=== PATIENT | female | born 1970 | race Caucasian/White ===

== ENCOUNTER 2016-05-13 13:38 | Emergency (ER) | payer OTHER ==
[~2016-05-13] VITALS: Wt 57.0 kg
[~2016-05-13 13:38] MED LIST: NAPR-688 PO
[2016-05-13] MEDS ORDERED: ONDANSETRON 4 MG INJ IV STA (14:37)
[2016-05-13] MEDS ORDERED: KETOROLAC 30 MG INJ IV STA (14:37)
[2016-05-13 15:00] LABS: BASOPHILS % 0.4 % (0.0-2.0); EOSINOPHILS % 0.8 % (0.0-7.0); LYMPHOCYTES % 39.2 % (15.0-51.0); MEAN CORPUSCULAR HEMOGLOBIN 28.9 pg (29.0-33.0); MEAN CORPUSCULAR HGB CONC 33.3 g/dl (32.0-37.0); MEAN CORPUSCULAR VOLUME 86.9 fl (82.0-101.0); MEAN PLATELET VOLUME 8.9 fl (7.4-10.4); MONOCYTE # 0.4 10^3/ul (0.3-0.9); MONOCYTES % 8.5 % (0.0-11.0); NEUTROPHIL # 2.7 10^3/ul (1.6-7.5); NEUTROPHILS % 51.1 % (39.0-77.0); PLATELET COUNT 237 10^3/UL (140-440); RED BLOOD COUNT 4.48 10^6/ul (4.20-5.40); RED CELL DISTRIBUTION WIDTH 13.6 % (11.5-14.5); UNCORRECTED WBC 5.2 10^3/ul (4.8-10.8); WHITE BLOOD COUNT 5.2 10^3/ul (4.8-10.8)
[2016-05-13 15:07] LABS: ADD UMIC YES; URINE BILIRUBIN (Dip) NEGATIVE (NEGATIVE); URINE BLOOD (Dip) TRACE (NEGATIVE); URINE COLOR LT. YELLOW (YELLOW); URINE GLUCOSE (Dip) NEGATIVE (NEGATIVE); URINE KETONES (Dip) NEGATIVE (NEGATIVE); URINE LEUKOCYTE ESTERASE (Dip) 1+ (NEGATIVE); URINE NITRITE (Dip) NEGATIVE (NEGATIVE); URINE TOTAL PROTEIN (Dip) NEGATIVE (NEGATIVE); URINE UROBILINOGEN (Dip) 0.2 E.U./dL (0.1-1.0)
[2016-05-13 15:08] LABS: ALBUMIN 4.5 g/dl (3.3-4.9); POTASSIUM 3.9 mmol/L (3.5-5.1)
[2016-05-13 15:10] LABS: BILIRUBIN,INDIRECT 0.2 mg/dl (0-1.1); BILIRUBIN,TOTAL 0.2 mg/dl (0.2-1.3); CREATININE 0.54 mg/dl (0.44-1.00)
[2016-05-13 15:11] LABS: ALBUMIN/GLOBULIN RATIO 1.12; CALCIUM 9.4 mg/dl (8.4-10.2); TOTAL PROTEIN 8.5 g/dl (6.1-8.1)
[2016-05-13 15:17] LABS: BACTERIA,URINE FEW; SQUAMOUS EPITHELIAL CELL,UR MODERATE
[2016-05-13 15:43] LABS: CONDITION 1
[2016-05-13] MEDS ORDERED: NAPR-260 PO (16:13)
[2016-05-13] MEDS ORDERED: CEPH-443 PO (16:13)
--- NOTE | 2016-05-13 16:20 | ERD ---
ER Documentation Chief Complaint Date/Time DATE: 05/13/16 TIME: 16:15 Chief Complaint left lower abdominal pain for 1 week. nausea no vomiting HPI 46-year-old female with no significant past medical history presents to the ED complaining of chronic left flank pain that started intermittently 1 week ago. States that the left back pain that radiates to the front of her abdomen. Describes the pain as sharp and rates it a 7 out of 10. Denies any fever, chills, chest pain, shortness of breath, cough, rhinorrhea. Reports that she has had a previous total hysterectomy. ROS All systems reviewed and are negative except as per history of present illness. Medications Home Meds Active Scripts Naproxen* (Naprosyn*) 500 Mg Tablet, 500 MG PO BID Y for PAIN AND/OR INFLAMMATION, #30 TAB Prov:JUAN J DIAZ PA-C 05/13/16 Cephalexin* (Keflex*) 500 Mg Capsule, 500 MG PO QID for 7 Days, CAP Prov:JUAN J DIAZ PA-C 05/13/16 Naproxen* (Naproxen*) 500 Mg Tablet, 500 MG PO BID, #20 TAB Prov:CARL WILLIAM DO 03/15/16 Allergies Allergies: Coded Allergies: No Known Drug Allergies (Verified Allergy, Unknown, 05/13/16) PMhx/Soc History of Surgery: Yes (Hysterectomy) Anesthesia Reaction: No Hx Neurological Disorder: No Hx Respiratory Disorders: No Hx Cardiac Disorders: No Hx Psychiatric Problems: No Hx Miscellaneous Medical Probl: Yes (urinary tract infection) Hx Alcohol Use: No Hx Substance Use: No Hx Tobacco Use: No Smoking Status: Never smoker Physical Exam Vitals Vital Signs Date Time Temp Pulse Resp B/P Pulse Ox O2 Delivery O2 Flow Rate FiO2 05/13/16 13:41 98.0 76 20 110/68 98 Physical Exam Const: [id number], well-nourished. In no acute distress. Head: Atraumatic, normocephalic Eyes: Normal Conjunctiva without injection. No purulent discharge. ENT: Normal external ear, nose. Moist oropharynx without tonsillar exudates. Non -erythematous pharynx. Uvula midline. No drooling. No trismus. Neck: No cervical midline tenderness. Full range of motion. No meningismus. No cervical lymphadenopathy. No JVD. Resp: Clear to auscultation bilaterally. No wheezing, rhonchi, rales, or crackles. No accessory muscle use. No retractions. Cardio: Regular rate and rhythm. No murmurs, rubs or gallops. Abd: Soft, slight left lower quadrant tenderness, non distended. Normal bowel sounds. No palpable masses. No rebound tenderness. No guarding. Negative McBurney's point. Negative psoas sign. Negative obturator sign. Skin: No petechiae or rashes Back: No midline tenderness. No CVA tenderness. Ext: No cyanosis, or edema. Neur: Awake and alert. Normal gait. Normal coordination. Psych: Normal Mood and Affect Result Diagram: 05/13/16 1453 05/13/16 1453 Results 24 hrs Laboratory Tests Test 05/13/16 14:53 05/13/16 14:55 Alanine Aminotransferase (ALT/SGPT) 89IU/L Albumin 4.5g/dl Albumin/Globulin Ratio 1.12 Alkaline Phosphatase 87IU/L Anion Gap 16 Aspartate Amino Transf (AST/SGOT) 56IU/L Basophils # 0.010^3/ul Basophils % 0.4% Blood Morphology Comment Blood Urea Nitrogen 14mg/dl Calcium Level 9.4mg/dl Carbon Dioxide Level 31mmol/L Chloride Level 103mmol/L Creatinine 0.54mg/dl Direct Bilirubin 0.00mg/dl Eosinophils # 0.010^3/ul Eosinophils % 0.8% Globulin 4.00g/dl Glucose Level 52mg/dl Hematocrit 39.0% Hemoglobin 13.0g/dl Indirect Bilirubin 0.2mg/dl Lipase 117U/L Lymphocytes # 2.010^3/ul Lymphocytes % 39.2% Mean Corpuscular Hemoglobin 28.9pg Mean Corpuscular Hemoglobin Concent 33.3g/dl Mean Corpuscular Volume 86.9fl Mean Platelet Volume 8.9fl Monocytes # 0.410^3/ul Monocytes % 8.5% Neutrophils # 2.710^3/ul Neutrophils % 51.1% Nucleated Red Blood Cells # 0.010^3/ul Nucleated Red Blood Cells % 0.0/100WBC Platelet Count 25525^3/UL Potassium Level 3.9mmol/L Red Blood Count 4.4810^6/ul Red Cell Distribution Width 13.6% Sodium Level 146mmol/L Total Bilirubin 0.2mg/dl Total Protein 8.5g/dl White Blood Count 5.210^3/ul Urine Bacteria FEW Urine Bilirubin NEGATIVE Urine Clarity CLEAR Urine Color LT. YELLOW Urine Glucose NEGATIVE% Urine Hemoglobin TRACE Urine Ketones NEGATIVE Urine Leukocyte Esterase 1+ Urine Microscopic RBC 2-5/HPF Urine Microscopic WBC 2-5/HPF Urine Nitrite NEGATIVE Urine Specific [place] 1.020 Urine Squamous Epithelial Cells MODERATE Urine Total Protein NEGATIVE Urine Urobilinogen 0.2 E.U./dL Urine pH 6.0 Current Medications Medications (Trade) Dose Ordered Sig/Lukas Route PRN Reason Start Time Stop Time Status Last Admin Dose Admin Ondansetron HCl (Zofran Inj) 4 mg ONCE STAT IV 05/13/16 14:37 05/13/16 14:38 05/13/16 14:47 Ketorolac Tromethamine (Toradol) 30 mg ONCE STAT IV 05/13/16 14:37 05/13/16 14:38 05/13/16 14:47 Procedures/MDM 46-year-old female with no significant past medical history presents the ED complaining chronic left flank pain that radiates to the left lower abdomen. Patient is afebrile and nontoxic-appearing. Patient has normal vital signs. Patient was further worked up with CBC, CMP, lipase, UA, urine . Patient's pain and symptoms have improved after treatment with 30 mg IV Ketoralac. CBC: No leukocytosis. No e/o of systemic infection. No e/o anemia. CMP: No e/o severe acidosis, alkalosis, renal failure, diabetic ketoacidosis, liver disease Lipase within normal limits. Urine: 1+ leukocyte esterase with 2-5 white blood cells. No hematuria no nitrite. Urine : Patient had a previous hysterectomy. Patient will be treated for a possible urinary tract infection. Patient's left flank pain as chronic. We discussed obtaining a CT of the abdomen and pelvis without contrast at this time. We both agreed at this time that since patient has had [address] scans, that the risks of radiation outweigh the benefits. There is low suspicion for acute abdomen such as diverticulitis, appendicitis , or other emergent conditions as patient has no leukocytosis noted. A differential diagnosis considered includes but is not limited to gastritis, GERD , peptic ulcer disease, cholecystitis, choledocholithiasis, cholangitis, pancreatitis, appendicitis, bowel obstruction, ileus, volvulus, nephrolithiasis , pyelonephritis, hepatitis, perforated viscus, diverticulitis, abdominal hernia , acute abdomen, mesenteric ischemia or other emergent conditions. 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 Instructed patient to return to the ED sooner for any worsening symptoms. Patient's questions were answered. Patient understood and agreed with discharge plan. Patient discharged stable. Departure Diagnosis: Primary Impression: Flank pain Additional Impression: UTI (urinary tract infection) Urinary tract infection type: site unspecified Hematuria presence: without hematuria Qualified Code: N39.0 - Urinary tract infection without hematuria, site unspecified Condition: Stable Patient Instructions: Understanding Urinary Tract Infections (UTIs), Flank Pain , Uncertain Cause Referrals: MARLEE HEREDIA (PCP) ON LICENSE OF [facility] YOU HAVE RECEIVED A MEDICAL SCREENING EXAM AND THE RESULTS INDICATE THAT YOU DO NOT HAVE A CONDITION THAT REQUIRES URGENT TREATMENT IN THE EMERGENCY DEPARTMENT. FURTHER EVALUATION AND TREATMENT OF YOUR CONDITION CAN WAIT UNTIL YOU ARE SEEN IN YOUR DOCTORS OFFICE WITHIN THE NEXT 1-2 DAYS. IT IS YOUR RESPONSIBILITY TO MAKE AN APPOINTMENT FOR FOLOW-UP CARE. IF YOU HAVE A PRIMARY DOCTOR --you should call your primary doctor and schedule an appointment IF YOU DO NOT HAVE A PRIMARY DOCTOR YOU CAN CALL OUR PHYSICIAN REFERRAL HOTLINE AT IF YOU CAN NOT AFFORD TO SEE A PHYSICIAN YOU CAN CHOSE FROM THE FOLLOWING ON LICENSE OF [facility] [address]. [facility] [address] [facility] [address] [facility] [facility] [address] [facility]. [facility] [address] [facility]. [facility]. [address] [facility] YOU HAVE RECEIVED A MEDICAL SCREENING EXAM AND THE RESULTS INDICATE THAT YOU DO NOT HAVE A CONDITION THAT REQUIRES URGENT TREATMENT IN THE EMERGENCY DEPARTMENT. FURTHER EVALUATION AND TREATMENT OF YOUR CONDITION CAN WAIT UNTIL YOU ARE SEEN IN YOUR DOCTORS OFFICE WITHIN THE NEXT 1-2 DAYS. IT IS YOUR RESPONSIBILITY TO MAKE AN APPOINTMENT FOR FOLOW-UP CARE. IF YOU HAVE A PRIMARY DOCTOR --you should call your primary doctor and schedule and appointment IF YOU DO NOT HAVE A PRIMARY DOCTOR YOU CAN CALL OUR PHYSICIAN REFERRAL HOTLINE AT . IF YOU CAN NOT AFFORD TO SEE A PHYSICIAN YOU CAN CHOSE FROM THE FOLLOWING [facility] INSTITUTIONS: [facility] [address] [place] [address] [facility] [address] [place] [address] [facility] + [facility] [address] [place] [address] [facility] URGENT [facility]/SPECIALTIES Additional Instructions: FOLLOW UP WITH YOUR PRIMARY CARE PHYSICIAN TOMORROW. Return to this facility if you are not improving as expected. JUAN J DIAZ PA-C May 13, 2016 16:20
== END 2016-05-13 16:24 | disposition home or self-care (01) ==
LOC: FTE 13:38
DX: R10.32 Left lower quadrant pain (principal); N39.0 Urinary tract infection, site not specified; R11.0 Nausea
CPT/HCPCS: 36415; 80053; 81001; 81003; 83690; 85025; 96374; 96375; J1885; J2405; Z7502

== ENCOUNTER 2016-11-10 13:10 | Emergency (ER) | payer OTHER ==
[~2016-11-10] VITALS: Wt 57.3 kg
[~2016-11-10 13:10] MED LIST changes: +CEPH-443 PO; +NAPR-260 PO
[2016-11-10 14:11] LABS: ADD SCAN DIFF NO
[2016-11-10 14:20] LABS: BASOPHILS % 0.3 % (0.0-2.0); EOSINOPHILS # 0.1 10^3/ul (0.0-0.5); EOSINOPHILS % 0.8 % (0.0-7.0); HEMATOCRIT 38.6 % (37.0-47.0); HEMOGLOBIN 12.4 g/dl (12.0-16.0); LYMPHOCYTES # 1.9 10^3/ul (0.8-2.9); LYMPHOCYTES % 32.8 % (15.0-51.0); MEAN CORPUSCULAR HEMOGLOBIN 28.9 pg (29.0-33.0); MEAN CORPUSCULAR HGB CONC 32.1 g/dl (32.0-37.0); MEAN PLATELET VOLUME 10.5 fl (7.4-10.4); MONOCYTE # 0.5 10^3/ul (0.3-0.9); MONOCYTES % 7.9 % (0.0-11.0); NEUTROPHIL # 3.4 10^3/ul (1.6-7.5); NEUTROPHILS % 57.9 % (39.0-77.0); PLATELET COUNT 231 10^3/UL (140-415); RED BLOOD COUNT 4.29 10^6/ul (4.20-5.40); RED CELL DISTRIBUTION WIDTH 13.1 % (11.5-14.5); WHITE BLOOD COUNT 5.9 10^3/ul (4.8-10.8)
[2016-11-10 14:32] LABS: ADD UMIC YES; UR ASCORBIC ACID NEGATIVE (NEGATIVE); UR BILIRUBIN (Dip) NEGATIVE (NEGATIVE); UR BLOOD (Dip) NEGATIVE (NEGATIVE); UR CLARITY CLEAR (CLEAR); UR COLOR STRAW (YELLOW); UR GLUCOSE (Dip) NEGATIVE (NEGATIVE); UR KETONES (Dip) NEGATIVE (NEGATIVE); UR LEUKOCYTE ESTERASE (Dip) TRACE Leu/ul (NEGATIVE); UR NITRITE (Dip) NEGATIVE (NEGATIVE); UR RBC 0 /HPF (0-5); UR SPECIFIC GRAVITY (Dip) 1.006 (1.003-1.030); UR TOTAL PROTEIN (Dip) NEGATIVE (NEGATIVE); UR UROBILINOGEN (Dip) NEGATIVE (NEGATIVE)
[2016-11-10 14:37] LABS: ALBUMIN 4.4 g/dl (3.3-4.9); ALBUMIN/GLOBULIN RATIO 1.12; BILIRUBIN,INDIRECT 0.3 mg/dl (0-1.1); BILIRUBIN,TOTAL 0.3 mg/dl (0.2-1.3); CALCIUM 9.8 mg/dl (8.4-10.2); CREATININE 0.58 mg/dl (0.44-1.00); POTASSIUM 4.2 mmol/L (3.5-5.1); TOTAL PROTEIN 8.3 g/dl (6.1-8.1)
--- NOTE | 2016-11-10 17:03 | RADRPT ---
PROCEDURE: CT Abdomen and Pelvis without contrast. CLINICAL INDICATION: Left lower quadrant pain radiating to back TECHNIQUE: CT scan of the abdomen and pelvis without contrast was performed on a multidetector hig h-resolution CT scanner. The patient was scanned without intravenous contrast. Coronal and sagittal reformatted images were obtained from the axial source images. Images were reviewed on a high-resol [employer] PACS workstation. The total exam CTDI equals 8.55 mGy and the total exam DLP equals 462.68 mGy -cm. One or more of the following dose reduction techniques were used: Automated exposure control. Adjustment of the mA and/or kV according to patient size. Use of iterative reconstruction technique. COMPARISON: CT abdomen and pelvis 10/26/2015 FINDINGS: CT abdomen: The lung bases are clear. The heart size is normal, without pericardial thickening or effusion. Th e liver is normal in size and density without focal mass or intrahepatic biliary dilatation. The sp kourtney is normal in size and homogeneous in density. The stomach is partially collapsed, but is gross ly unremarkable. The pancreas as visualized is normal. The gallbladder is unremarkable. There is n o evidence for biliary dilatation. The adrenal glands are symmetric and normal. The kidneys are sy mmetrically unremarkable as well. No renal calculus or obstructive uropathy or mass lesion is seen. The aorta is of normal caliber. There is no retroperitoneal lymphadenopathy. The elaina hepatis bandar on is clear. The bowel and mesentery, as visualized, are equally unremarkable. There is mild hiatal hernia. CT pelvis: The small bowel loops situated within the pelvis are unremarkable. The appendix is normal. The shaji nimo is absent. The pelvic sidewalls and inguinal regions are clear. The sigmoid colon and rectum a re unremarkable. No mass, lymphadenopathy, or free fluid is seen. No acute inflammation is seen. N o osteolytic or osteoblastic lesion is detected. IMPRESSION: 1. No mass, lymphadenopathy, or focal acute inflammatory process is identified. 2. No urolithiasis. No hydronephrosis. 3. Small hiatal hernia. 4. Normal appendix. RPTAT: BB .Elke Varela MD, MD Date Time Electronically viewed and signed by .Elke Varela MD, MD on 11/10/2016 17:03 .O/
[2016-11-10] MEDS ORDERED: CEPH-443 PO (18:14)
[2016-11-10] MEDS ORDERED: IBUP800T25 PO (18:14)
[2016-11-10 18:55] VITALS: BP 136/79; PULSE 54; RESP 20
--- NOTE | 2016-11-10 20:18 | ERD ---
ER Documentation Chief Complaint Date/Time DATE: 11/10/16 TIME: 20:15 Chief Complaint pt. states "urine infection" HPI This is a very pleasant 46-year-old female that presents to the emergency department complaining of frequency urgency and dysuria for the past 3 days. She states that she is experiencing cramping in the left lower abdomen that does radiate to the back. The patient had a total abdominal hysterectomy in 2012. Since that time she indicates she has had multiple frequent urinary tract infections. She states she is currently sexually active with one partner denies any abnormal urethral discharge. She has had no fevers or shaking or chills. She denies any purulent drainage from the vagina. She denies any chest pain or pressure that radiates the neck arm back or jaw. She did not take any analgesic medication prior to arrival ROS All systems reviewed and are negative except as per history of present illness. Medications Home Meds Active Scripts Cephalexin* (Keflex*) 500 Mg Capsule, 500 MG PO QID for 5 Days, CAP Prov:TARAH MEJIA 11/10/16 Ibuprofen* (Motrin*) 800 Mg Tab, 800 MG PO Q6H Y for PAIN AND OR ELEVATED TEMP, #30 TAB Prov:TARAH MEJIA 11/10/16 Naproxen* (Naprosyn*) 500 Mg Tablet, 500 MG PO BID Y for PAIN AND/OR INFLAMMATION, #30 TAB Prov:JUAN J DIAZ PA-C 05/13/16 Cephalexin* (Keflex*) 500 Mg Capsule, 500 MG PO QID for 7 Days, CAP Prov:JUAN J DIAZ PA-C 05/13/16 Naproxen* (Naproxen*) 500 Mg Tablet, 500 MG PO BID, #20 TAB Prov:CARL WILLIAM DO 03/15/16 Allergies Allergies: Coded Allergies: No Known Drug Allergies (Verified Allergy, Unknown, 05/13/16) PMhx/Soc History of Surgery: Yes (HYSTERECTOMY) Anesthesia Reaction: No Hx Neurological Disorder: No Hx Respiratory Disorders: No Hx Cardiac Disorders: No Hx Psychiatric Problems: No Hx Miscellaneous Medical Probl: Yes (FREQUENT UTI) Hx Alcohol Use: No Hx Substance Use: No Hx Tobacco Use: No Smoking Status: Never smoker Physical Exam Vitals Vital Signs Date Time Temp Pulse Resp B/P Pulse Ox O2 Delivery O2 Flow Rate FiO2 7/20/17 18:55 54 20 136/79 98 Room Air 11/10/16 13:14 98.0 70 20 111/61 98 Physical Exam Constitutional:Well-developed. Well-nourished. HEENT:Normocephalic. Atraumatic.Pupils were equal round reactive to light. Moist mucous membranes.No tonsillar exudates. Neck: No nuchal rigidity. No lymphadenopathy. No posterior cervical spine tenderness or step-offs. Respiratory: Not using accessory muscles of respiration.Lungs were clear to auscultation bilaterally. No rhonchi. No rales. No wheezing. Cardiovascular: Regular rate regular rhythm.No murmurs. No rubs were appreciated.S1, S2 normal. Distal pulses are palpable 2+ bilaterally. GI: Abdomen was soft. Left lower quadrant tenderness. Non Distended. No pulsatile abdominal masses or bruits. No rebound. No guarding. Bowel sounds were present and normal. Muscle skeletal: Full range of motion of both the upper and lower extremities bilaterally.Normal muscle tone.No assymetrical calf tenderness or swelling. Skin: No petechia, no purpura. No lesions on the palms or the soles of the feet. No maculopapular rash. NEURO: Patient was alert, awake, orientated x3.No facial droop. Gait observed and normal with no ataxia.Speech had regular rate and rhythm. No focal neurological deficits. Result Diagram: 11/10/16 1405 11/10/16 1405 Results 24 hrs Laboratory Tests Test 11/10/16 14:05 White Blood Count 5.910^3/ul Red Blood Count 4.2910^6/ul Hemoglobin 12.4g/dl Hematocrit 38.6% Mean Corpuscular Volume 90.0fl Mean Corpuscular Hemoglobin 28.9pg Mean Corpuscular Hemoglobin Concent 32.1g/dl Red Cell Distribution Width 13.1% Platelet Count 16804^3/UL Mean Platelet Volume 10.5fl Neutrophils % 57.9% Lymphocytes % 32.8% Monocytes % 7.9% Eosinophils % 0.8% Basophils % 0.3% Neutrophils # 3.410^3/ul Lymphocytes # 1.910^3/ul Monocytes # 0.510^3/ul Eosinophils # 0.110^3/ul Basophils # 0.010^3/ul Nucleated Red Blood Cells # 0.010^3/ul Urine Color STRAW Urine Clarity CLEAR Urine pH 6.0 Urine Specific [place] 1.006 Urine Ketones NEGATIVEmg/dL Urine Nitrite NEGATIVEmg/dL Urine Bilirubin NEGATIVEmg/dL Urine Urobilinogen NEGATIVEmg/dL Urine Leukocyte Esterase TRACELeu/ul Urine Microscopic RBC 0/HPF Urine Microscopic WBC 1/HPF Urine Hemoglobin NEGATIVEmg/dL Urine Glucose NEGATIVEmg/dL Urine Total Protein NEGATIVEmg/dl Sodium Level 144mmol/L Potassium Level 4.2mmol/L Chloride Level 100mmol/L Carbon Dioxide Level 29mmol/L Anion Gap 19 Blood Urea Nitrogen 15mg/dl Creatinine 0.58mg/dl Glucose Level 76mg/dl Calcium Level 9.8mg/dl Total Bilirubin 0.3mg/dl Direct Bilirubin 0.00mg/dl Indirect Bilirubin 0.3mg/dl Aspartate Amino Transf (AST/SGOT) 63IU/L Alanine Aminotransferase (ALT/SGPT) 103IU/L Alkaline Phosphatase 86IU/L Total Protein 8.3g/dl Albumin 4.4g/dl Globulin 3.90g/dl Albumin/Globulin Ratio 1.12 Procedures/MDM This patient presented to the emergency department with abdominal pain and frequency urgency dysuria and was seen and evaluated by myself. My differential diagnosis included but was not limited to abdominal aortic aneurysm, appendicitis, pancreatitis, perforated peptic ulcer, perforated viscus, Boerhaaves syndrome or visceral pain such as diverticulitis, DKA, esophagitis, hepatitis or bowel obstruction. The patient had ancillary laboratory work performed by myself and there is no leukocytosis or electrolyte abnormalities. The urinalysis did not suggest a urinary tract infection and therefore did feel is necessary at this time to obtain a CT scan of the abdomen to rule out other acute pathology. This was reviewed by myself and the radiologist and there indicated there was no signs of an abdominal aortic aneurysm or obstructive uropathy. I did indicate to the patient that I did not have an exact etiology into her dysuria. She did however request antibiotics as she states this is similar nature to her previous episodes of dysuria that led to a urinary tract infection. Therefore she was given Keflex and Motrin if needed for analgesic control. I did indicate she would benefit from following up with her PCP in the next 24 hours for reevaluation. The patient was discharged home in fair condition. They were instructed to return to the emergency department at any time if there was any worsening of their condition. The patient stated they would follow up with their PCP in the next 24-48 hours to initiate a suitable medication regimen under the care of their PCP as well as to allow their PCP to monitor any drug reactions. The patient was discharged home with prescriptions after they gave informed consent to the new medication. They were also fully informed by myself on the adverse effects and adverse drug interactions in order to provide adequate safeguards to prevent possible adverse reactions to medications. Departure Diagnosis: Primary Impression: Dysuria Condition: Fair Patient Instructions: Dysuria, Uncertain Cause (Adult) Referrals: MARLEE HEREDIA (PCP) TARAH MEJIA Nov 10, 2016 20:18
== END 2016-11-10 18:57 | disposition home or self-care (01) ==
LOC: FTE 13:10
DX: R30.0 Dysuria (principal)
CPT/HCPCS: 74176; 80053; 81001; 85025; 87086; Z7502

== ENCOUNTER 2017-03-09 10:56 | Emergency (ER) | payer OTHER ==
[~2017-03-09] VITALS: Ht 154.9 cm; Wt 58.0 kg
[~2017-03-09 10:56] MED LIST changes: +IBUP800T25 PO
[2017-03-09 10:58] VITALS: Ht 154.9 cm; Wt 58.0 kg
[2017-03-09 12:19] LABS: URINE BLOOD (Dip) POC Negative (NEGATIVE)
--- NOTE | 2017-03-09 12:23 | ERD ---
ER Documentation Chief Complaint Chief Complaint pt bib self with c/o abd pain , n/v HPI 46-year-old female with a history of urinary tract infections presents with chief complaints of dysuria and left-sided flank pain. Patient has received multiple CT scans within the past 2 years. Was being treated for urinary tract infection with Macrobid. Only took 2 doses of the medication and discontinued because she started feeling fine. Last medication was taken 1 month ago. Denies fever, chills, vomiting, vaginal discharge, pelvic pain, headache. Patient has no other complaints and describes no other associated manifestations. ROS All systems reviewed and are negative except as per history of present illness. Medications Home Meds Active Scripts Nitrofurantoin Monohyd Macrocr* (Macrobid*) 100 Mg Capsr, 100 MG PO HS for 7 Days, CAP Prov:EMELYN BERNARD PA-C 03/09/17 Hydrocodone/Acetaminophen ([place] 5-325 Tablet) 1 Each Tablet, 1 TAB PO Q6H Y for PAIN, #5 TAB Prov:EMELYN BERNARD PA-C 03/09/17 Cephalexin* (Keflex*) 500 Mg Capsule, 500 MG PO QID for 5 Days, CAP Prov:TARAH MEJIA 11/10/16 Ibuprofen* (Motrin*) 800 Mg Tab, 800 MG PO Q6H Y for PAIN AND OR ELEVATED TEMP, #30 TAB Prov:TARAH MEJIA 11/10/16 Naproxen* (Naprosyn*) 500 Mg Tablet, 500 MG PO BID Y for PAIN AND/OR INFLAMMATION, #30 TAB Prov:JUAN J DIAZ PA-C 05/13/16 Cephalexin* (Keflex*) 500 Mg Capsule, 500 MG PO QID for 7 Days, CAP Prov:JUAN J DIAZ PA-C 05/13/16 Naproxen* (Naproxen*) 500 Mg Tablet, 500 MG PO BID, #20 TAB Prov:CARL WILLIAM DO 03/15/16 Allergies Allergies: Coded Allergies: No Known Drug Allergies (Verified Allergy, Unknown, 05/13/16) PMhx/Soc Medical and Surgical Hx: pt denies Medical Hx History of Surgery: Yes (HYSTERECTOMY) Anesthesia Reaction: No Hx Neurological Disorder: No Hx Respiratory Disorders: No Hx Cardiac Disorders: No Hx Psychiatric Problems: No Hx Miscellaneous Medical Probl: Yes (FREQUENT UTI) Hx Alcohol Use: No Hx Substance Use: No Hx Tobacco Use: No Physical Exam Vitals Vital Signs Date Time Temp Pulse Resp B/P Pulse Ox O2 Delivery O2 Flow Rate FiO2 03/09/17 10:58 98.3 58 16 102/61 98 Physical Exam Const: [] Head: Atraumatic Eyes: Normal Conjunctiva ENT: Normal External Ears, Nose and Mouth. Neck: Full range of motion..~ No meningismus. Resp: Clear to auscultation bilaterally Cardio: Regular rate and rhythm, no murmurs Abd: Soft, non tender, non distended. Normal bowel sounds Skin: No petechiae or rashes Back: No midline or flank tenderness Ext: No cyanosis, or edema Neur: Awake and alert Psych: Normal Mood and Affect Results 24 hrs Laboratory Tests Test 03/09/17 12:18 Bedside Urine pH (LAB) 6.0 Bedside Urine Protein (LAB) 2+ Bedside Urine Glucose (UA) Negative Bedside Urine Ketones (LAB) 3+ Bedside Urine Blood Negative Bedside Urine Nitrite (LAB) Negative Bedside Urine Leukocyte Esterase (L Negative Current Medications Medications (Trade) Dose Ordered Sig/Lukas Route PRN Reason Start Time Stop Time Status Last Admin Dose Admin Ondansetron HCl (Zofran Odt) 4 mg ONCE STAT ODT 03/09/17 12:43 03/09/17 12:44 DC 03/09/17 13:03 Procedures/MDM 46-year-old female with a history of urinary tract infections presents with the chief complaints of dysuria and left-sided flank pain. Contrary to nursing notes, patient describes nausea without vomiting. Tolerates p.o. No fever or chills. Self discontinued medication for urinary tract infection after 2 doses due to resolution of symptoms 1-2 months ago. Patient was taking Macrobid. Urine negative. Urine dip was obtained in the emergency department and reveal the following: Urine dip unremarkable. Refused pain medications in the emergency department. Most likely diagnosis is urinary tract infection versus flank pain of unknown etiology. Spoke to my attention evaluated the patient himself and has agreed that imaging modality is not appropriate at this time. Is also recommended treating pain. Patient has requested Macrobid continuation. At this time I do not suspect pyelonephritis, ovarian torsion, tubo-ovarian abscess, ectopic , mechanical obstruction, hernia, appendicitis, intestinal ischemia, PID, AAA, or diverticulitis. The patient is well appearing, and tolerates PO. I have spoke with the patient regarding their condition and future management. They have verbally responded that they understand their status and treatment plan. The patients vitals are stable, and their current condition is appropriate for discharge. The patient will be given discharge instructions with return precautions. Departure Diagnosis: Primary Impression: Flank pain Condition: Stable Additional Instructions: Follow up with your PCP within the next 1-3 days for a more thorough evaluation and a possible referral to a specialist. Return the the emergency department immediately if symptoms worsen or change. If you have any questions regarding medications, ask your pharmacist or us before you leave. If any adverse reactions occur while taking your medications, discontinue the treatment and return to the emergency department immediately. Take your medications as directed, and complete the entire course of treatment. EMELYN BERNARD PA-C Mar 09, 2017 12:23
[2017-03-09] MEDS ORDERED: ONDANSETRON (ODT) 4 MG TAB ODT STA (12:43)
[2017-03-09] MEDS ORDERED: NITR-58 PO (13:13)
[2017-03-09] MEDS ORDERED: HYDR-906 PO (13:13)
== END 2017-03-09 14:14 | disposition home or self-care (01) ==
LOC: FTE 10:56
DX: R10.9 Unspecified abdominal pain (principal)
CPT/HCPCS: 81003; 87086; Z7502; Z7610; 99283

== ENCOUNTER 2018-05-26 10:46 | Emergency (ER) | payer OTHER ==
[~2018-05-26] VITALS: Ht 157.5 cm; Wt 55.7 kg
[~2018-05-26 10:46] MED LIST changes: +HYDR-4011 PO; -IBUP800T25 PO; +IBUP800T48 PO; -NAPR-260 PO; +NAPR-985 PO; +NITR-58 PO
[2018-05-26 10:48] VITALS: BP 116/68; PULSE 64; RESP 18; Ht 157.5 cm; Wt 55.7 kg
--- NOTE | 2018-05-26 11:48 | ERD ---
ER Documentation Chief Complaint Chief Complaint painful urination x 1 wk HPI 48-year-old female complaining of dysuria times 1 week. Patient states that she went to urgent care a week ago for the same, and was diagnosed with UTI. She was given metronidazole and Cipro. Patient states that she almost finished all the antibiotics, and her symptoms have not improved. She also reports left flank pain and left pelvic pain. Patient had a total hysterectomy in 2012, and reports frequent dysuria since then. Review medical records indicate the patient had been seen in this ER multiple times for the similar symptoms. She also received multiple CT scans in the past, all workups in the past are ne gative. Patient denies fever or chills. Denies abdominal pain. Patient states that she had a fever while she was at urgent care a week ago, and she had a mild vomiting and diarrhea since. ROS All systems reviewed and are negative except as per history of present illness. Medications Home Meds Active Scripts Clotrimazole* (Clotrimazole* AF) 1% - 30 Gm Cream.gm., 1 APPLIC TOP BID for 7 Days, TUB Prov:PEGGY LARIOS NP 05/26/18 Ibuprofen* (Motrin*) 600 Mg Tab, 600 MG PO Q6H PRN for PAIN AND OR ELEVATED TEMP, #30 TAB Prov:PEGGY LARIOS NP 05/26/18 Nitrofurantoin Monohyd Macrocr* (Macrobid*) 100 Mg Capsr, 100 MG PO HS for 7 Days, CAP Prov:EMELYN BERNARD PA-C 03/09/17 Hydrocodone/Acetaminophen ([place] 5-325 Tablet) 1 Each Tablet, 1 TAB PO Q6H PRN for PAIN, #5 TAB Prov:EMELYN BERNARD PA-C 03/09/17 Cephalexin* (Keflex*) 500 Mg Capsule, 500 MG PO QID for 5 Days, CAP Prov:TARAH MEJIA MD 11/10/16 Ibuprofen* (Motrin*) 800 Mg Tab, 800 MG PO Q6H PRN for PAIN AND OR ELEVATED TEMP, #30 TAB Prov:TARAH MEJIA MD 11/10/16 Naproxen* (Naprosyn*) 500 Mg Tablet, 500 MG PO BID PRN for PAIN AND/OR INFLAMMATION, #30 TAB Prov:JUAN J DIAZ PA-C 05/13/16 Cephalexin* (Keflex*) 500 Mg Capsule, 500 MG PO QID for 7 Days, CAP Prov:JUAN J DIAZ Gabriel VIEIRA 05/13/16 Naproxen* (Naproxen*) 500 Mg Tablet, 500 MG PO BID, #20 TAB Prov:CARL WILLIAM DO 03/15/16 Allergies Allergies: Coded Allergies: No Known Drug Allergies (Verified Allergy, Unknown, 05/13/16) PMhx/Soc Medical and Surgical Hx: pt denies Medical Hx History of Surgery: Yes (HYSTERECTOMY) Anesthesia Reaction: No Hx Neurological Disorder: No Hx Respiratory Disorders: No Hx Cardiac Disorders: No Hx Psychiatric Problems: No Hx Miscellaneous Medical Probl: Yes (FREQUENT UTI) Hx Alcohol Use: No Hx Substance Use: No Hx Tobacco Use: No Smoking Status: Never smoker Physical Exam Vitals Vital Signs Date Temp Pulse Resp B/P (MAP) Pulse Ox O2 O2 Flow FiO2 Time Delivery Rate 05/26/18 97.0 64 18 116/68 99 10:48 (84) Physical Exam General: Well-developed, well-nourished, conscious and coherent, in no distress Skin: Warm and dry without rash, good texture and turgor Head: Normocephalic without evidence of trauma Nose/Face: Without rhinorrhea Chest: Normal AP diameter. Good expansion without retractions. Nontender. Lungs are clear to auscultate bilaterally with good tidal volume Heart: Regular rate and rhythm. No murmur, rub, or gallops heard Abdomen: Soft and nontender without masses, guarding, or rebound. Bowel sounds are active. No hepatosplenomegaly Back: Without spinal or CVA tenderness. Paraspinal muscle spasm and tenderness noted in the left lumbar region. Pelvis: Mild left pelvic tenderness : Skin near the vaginal introitus appeared to be slightly macerated, with whitish vaginal discharge. Extremities: Full range of motion. Good strength bilaterally. No erythema, ecchymosis, or edema. Peripheral pulses are intact. Sensation intact Neuro: Alert and oriented 4, GCS 15. Results 24 hrs Laboratory Tests Test 05/26/18 12:02 Bedside Urine pH (LAB) 5.5 Bedside Urine Protein (LAB) Negative Bedside Urine Glucose (UA) Negative Bedside Urine Ketones (LAB) Negative Bedside Urine Blood Negative Bedside Urine Nitrite (LAB) Negative Bedside Urine Leukocyte Esterase (L Negative Procedures/MDM 48-year-old female present ED with dysuria and left lower back pain. She is currently being treated for UTI. UA is negative for urinary tract infection or hematuria. I doubt pyelonephritis or nephrolithiasis. Patient requests blood test. However, when I review patient's medical records, I see that patient has been here multiple times for the same symptoms. Each time her blood work and CT images are negative. Patient does not appear sick, I doubt that I will have different results from blood tests and imaging at this time. I performed the pelvic exam, and noted that patient does have this slightly macerated skin near the vaginal introitus. I suspect this may be the cause of her dysuria. Patient also noted to have muscle spasm in the left lower back. I think this is caused her back pain, rather than the flank pain that she was reporting. Patient does not have any midline spinal tenderness. I doubt spinal fracture, subluxation, or disc herniation. I doubt spinal epidural abscess, cauda equina syndrome. Patient appears well, stable for discharge and outpatient management. Medical decision making shared with patient and family. Education provided to patient and family. Patient and family expressed understanding of the plan. Medications on discharge: Ibuprofen, clotrimazole. Follow-up: Primary care provider in 2-3 days or return to ED if worse. Disclaimer: Inadvertent spelling and grammatical errors are likely due to EHR/dictation software use and do not reflect on the overall quality of patient care. Also, please note that the electronic time recorded on this note does not necessarily reflect the actual time of the patient encounter. Departure Diagnosis: Primary Impression: Dysuria Additional Impression: Back spasm Condition: Stable PEGGY LARIOS NP May 26, 2018 11:48
[2018-05-26] MEDS ORDERED: IBUP-1542 PO (12:38)
[2018-05-26] MEDS ORDERED: CLOT30CR24 TOP (12:38)
== END 2018-05-26 13:06 | disposition home or self-care (01) ==
LOC: FTE 10:46
DX: R30.0 Dysuria (principal); M62.830 Muscle spasm of back; R40.2412 Glasgow coma scale score 13-15, at arrival to emergency department
CPT/HCPCS: 81003; Z7502; 99284